=== PATIENT | male | born 2000 | race Caucasian/White ===

== ENCOUNTER 2023-10-11 06:12 | Day surgery (SDC) | payer OTHER ==
[~2023-10-11] VITALS: Ht 177.8 cm; Wt 101.9 kg
[2023-10-11] MEDS ORDERED: LIDOCAINE 1% SDV 5ML VIAL PN ONE (06:45)
[2023-10-11] MEDS ORDERED: EPINEPHrine INJ 1 MG/ML 1ML AMP PN ONE (06:45)
[2023-10-11] MEDS ORDERED: dexAMETHasone 10MG/1ML VIAL PRES.FREE PN ONE (06:45)
[2023-10-11] MEDS ORDERED: ROPIvacaine 0.5% 30ML VIAL PN ONE (06:45)
[2023-10-11] MEDS ORDERED: MIDAZOLAM INJ 2MG/2ML VIAL As Ordered ONE (06:50)
[2023-10-11] MEDS ORDERED: KETAMINE HCL 200MG/20ML VIAL As Ordered ONE (06:50)
[2023-10-11] MEDS ORDERED: HYDROmorphone HCL 2MG/ML 1ML VIAL As Ordered ONE (06:50)
[2023-10-11] MEDS ORDERED: fentaNYL 100 MCG/2 ML INJECTION As Ordered ONE (06:51)
[2023-10-11] MEDS ORDERED: LIDOCAINE 2% 100MG/5ML SDV (FOR ANES.) As Ordered ONE (06:54)
[2023-10-11] MEDS: LR 1,000 ML IV SCH (06:54)
[2023-10-11] MEDS ORDERED: ROCURONIUM BROMIDE 50MG/5ML VIAL As Ordered ONE (06:54)
[2023-10-11] MEDS ORDERED: SUGAMMADEX SODIUM 500 MG/5 ML VIAL (BRIDION) As Ordered ONE (06:54)
[2023-10-11] MEDS ORDERED: propofoL 200 MG/20 ML VIAL As Ordered ONE (06:54)
[2023-10-11] MEDS ORDERED: KETOROLAC 60MG 2ML VIAL As Ordered ONE (06:55)
[2023-10-11] MEDS ORDERED: ONDANSETRON 4MG 2ML VIAL As Ordered ONE (06:55)
[2023-10-11] MEDS ORDERED: GLYCOPYRROLATE INJ 0.2 MG/ML 2 ML VIAL As Ordered ONE (07:06)
[2023-10-11] MEDS ORDERED: TRANEXAMIC ACID 100 MG/ML 10ML VIAL As Ordered ONE (07:07)
[2023-10-11] MEDS ORDERED: EPINEPHrine 1MG/ML INJ 30ML MD-VIAL As Ordered ONE (07:08)
[2023-10-11] MEDS: fentaNYL 100 MCG/2 ML INJECTION IV PRN (07:31)
[2023-10-11] MEDS: MIDAZOLAM INJ 2MG/2ML VIAL IV PRN (07:31)
[2023-10-11] MEDS: ceFAZolin SOD 2 GM in IV 1 EA IV ONE (07:50)
[2023-10-11] MEDS: TRANEXAMIC ACID 100 MG/ML 10ML VIAL IV ONE (07:56)
[2023-10-11] MEDS ORDERED: ESMOLOL INJ 100MG/10ML VIAL As Ordered ONE (08:48)
[2023-10-11] MEDS: ceFAZolin 2 GM/D5W 50 ML IV BAG As Ordered ONE (11:45)
[2023-10-11] MEDS ORDERED: fentaNYL 100 MCG/2 ML INJECTION IV PRN (13:35)
[2023-10-11] MEDS ORDERED: ONDANSETRON 4MG 2ML VIAL IV PRN (13:35)
[2023-10-11] MEDS ORDERED: MORPHINE 2 MG/ML 1ML VIAL IV PRN (13:35)
[2023-10-11] MEDS: oxyCODONE 5MG TAB PO PRN (14:26)
[2023-10-11 15:07] VITALS: BP 142/67; TEMP 97.6; O2SAT 98
== END 2023-10-11 15:19 | disposition home or self-care (01) ==
LOC: M SDC 06:12
PROVIDERS: ATTEND Orthopaedic Surgery
DX: S83.511A Sprain of anterior cruciate ligament of right knee, initial encounter (principal); S83.211A Bucket-handle tear of medial meniscus, current injury, right knee, initial encounter; X50.0XXA Overexertion from strenuous movement or load, initial encounter; Y93.89 Activity, other specified; Y92.9 Unspecified place or not applicable
CPT/HCPCS: 29882; 29888; C1713; J0171; J0665; J0690; J1100; J1170; J1805; J1885; J2250; J2405; J3010